=== PATIENT | male | born 1980 | race Caucasian/White ===

== ENCOUNTER 2025-03-29 11:34 | Day surgery (SDC) | payer BC ==
[2025-03-29] VITALS (8 sets, daily range): BP systolic 120–154; BP diastolic 73–90; PULSE 56–76; RESP 16–18; TEMP 97.3–98.1; O2SAT 96–98
[~2025-03-29] VITALS: Ht 185.4 cm; Wt 101.6 kg
[2025-03-29] MEDS ORDERED: XYLOCAINE ONE (12:15)
[2025-03-29] MEDS ORDERED: SUBLIMAZE 100MCG/2ML ONE ×2 (12:15→14:02)
[2025-03-29] MEDS ORDERED: VERSED ONE ×2 (12:15→13:48)
[2025-03-29] MEDS ORDERED: NS 1000ML 1,000 ML ONE (13:20)
[2025-03-29] MEDS ORDERED: XYLOCAINE 1%-EPI ONE (14:29)
== END 2025-03-29 15:45 | disposition home or self-care (01) ==
LOC: ER 11:34 → SDC 12:18
PROVIDERS: ATTEND Internal Medicine
DX: I70.201 Unspecified atherosclerosis of native arteries of extremities, right leg (principal)
CPT/HCPCS: 75625; 75716; 36247; 99153; 99152; 76937; 99285; J7030; J1644; C1894; A6258; C1887; C1769 ×2; J2250 ×2; J3010 ×2; A4618; C1725; Q9967; 75710; C1760